=== PATIENT | male | born 1965 | race African-American/Black ===

== ENCOUNTER 2018-06-20 23:15 | Emergency (ER) | payer SELFPAY ==
[~2018-06-20] VITALS: Ht 175.3 cm; Wt 127.3 kg
[~2018-06-20 23:15] MED LIST: AMLO2.5T2 PO; ASPIRIN PO; OMEP20CA4 PO
[2018-06-21 00:41] LABS: BASOPHILS % 1.2 % (0.0-2.0); EOSINOPHILS % 1.8 % (0.0-5.0); HEMATOCRIT. 41.8 % (42.0-52.0); HEMOGLOBIN. 13.7 g/dL (14.0-18.0); LYMPHOCYTES % 28.6 % (20.0-50.0); MEAN CORPUSCULAR HEMOGLOBIN 27.5 pg (28.0-32.0); MEAN PLATELET VOLUME 9.5 fl (7.4-10.4); NEUTROPHILS % 61.4 % (40.0-76.0); PLATELET 267 x1000/uL (130-400); RED BLOOD CELL COUNT 4.97 mill/uL (4.7-6.1); RED CELL DISTRIBUTION WIDTH 14.7 % (11.6-14.6)
[2018-06-21 00:47] LABS: CHLORIDE 102 mEq/L (98-107)
[2018-06-21 01:58] VITALS: BP 129/77
== END 2018-06-21 02:00 | disposition home or self-care (01) ==
LOC: ER 23:15
DX: R00.2 Palpitations (principal); Z79.82 Long term (current) use of aspirin
CPT/HCPCS: 36415; 71045; 84484; 93005; 99285

== ENCOUNTER 2022-09-01 20:59 | Emergency (ER) | payer SELFPAY | END 2022-09-01 21:34 | disposition left against medical advice (07) | LOC: ER 21:08 | DX: Z53.21 Procedure and treatment not carried out due to patient leaving prior to being seen by health care provider (principal) ==